=== PATIENT | female | born 1950 | race Caucasian/White ===

== ENCOUNTER 2022-10-16 13:36 | Observation (INO) ==
[2022-10-16] MEDS ORDERED: SODIUM CHLORIDE 0.9% 1,000 ML IV STA (13:58)
[2022-10-16 14:08] LABS: Basophils # 0.1 10*3/uL (0.0-0.2); Basophils % 0.8 % (0.0-0.8); Hematocrit 42.2 VOL% (35.7-47.0); Hemoglobin 13.6 GM/DL (12.0-16.0); Immature Granulocytes % 0.3 %; Immature Granulocytes Absolute 0.02 #; Lymphocytes # 2.5 10*3/uL (1.4-4.0); Mean Corpuscular HGB Conc 32.2 GM/DL (32-36); Mean Corpuscular Volume 86.7 FL (87-102); Mean Platelet Volume 9.8 FL (9.6-12.0); Monocytes # 0.7 10*3/uL (0.11-0.8); Monocytes % 10.2 % (1.7-12.7); Neutrophils % 51.7 % (38.7-73.9); Platelet Count 302 T/CUMM (130-400); Red Blood Count 4.87 MC/CUMM (3.8-5.5); Red Cell Distribution Width 14.3 % (9.3-17.3); White Blood Count 6.6 T/CUMM (4-12)
[2022-10-16 14:12] LABS: Bacteria,Urine Occasional /HPF (Few); Mucus,Urine Occasional /LPF (Occasional); RBC,Urine <1 /HPF (0-4); Squamous Epithelial Cell,Urine Occasional /HPF (0-10); Urine Appearance Clear (Clear); Urine Color Yellow (Yellow)
[2022-10-16 14:13] LABS: Urine pH 6.5 (4.5-8.0)
[2022-10-16 14:14] LABS: Bilirubin,Urine Negative (Negative); Blood, Urine Negative (Negative); Glucose,Urine (UA) Negative (Negative); Ketones,Urine Negative (Negative); Nitrite,Urine Negative (Negative); Protein,Urine Negative (Negative); Urine Urobilinogen 0.2 eU/dL (<2.0)
[2022-10-16 14:23] LABS: Alanine Aminotransferase 80 U/L (13-56); Albumin 3.9 G/DL (3.4-5.0); Alkaline Phosphatase 137 U/L (45-117); Aspartate Amino Transferase 69 U/L (0-37); Blood Urea Nitrogen 22 MG/DL (7-18); Calcium 9.7 MG/DL (8.5-10.1); Carbon Dioxide 28 MMOL/L (21-32); Chloride 106 MMOL/L (98-107); Glucose 96 MG/DL (74-106); Osmolality,Calculated 281.4 MOS/KG (273-304); Potassium 3.5 MMOL/L (3.5-5.1); Sodium 140 MMOL/L (136-145); Total Protein 7.8 G/DL (6.4-8.2)
[2022-10-16 14:56] LABS: Barbiturates Screen,Urine Negative (Negative); Benzodiazepines Screen,Urine Positive (Negative); Cannabinoid Screen,Urine Negative (Negative); Opiate Screen,Urine Negative (Negative); Phencyclidine Screen,Urine Negative (Negative)
[2022-10-16] MEDS ORDERED: LABETALOL 20 MG/4 ML SYRINGE IV STA (15:20)
[2022-10-16 16:26] LABS: INR 0.9; PT Patient Result 10.3 SECS (10.1-12.1); Partial Thromboplastin Time 25.6 SECS (23.7-32.9)
[2022-10-16] MEDS ORDERED: ONDANSETRON 4 MG/2 ML VIAL IV PRN (17:56)
[2022-10-16] MEDS ORDERED: GLUCAGON 1 MG VIAL IM PRN (17:56)
[2022-10-16] MEDS ORDERED: DEXTROSE 10% 250 ML BAG IV PRN (18:13)
[2022-10-16] MEDS: INSULIN LISPRO 100 UNIT/ML SUBCUT SCH ×2 (19:23→21:00)
[2022-10-16] MEDS: SODIUM CHLORIDE 0.9% 1,000 ML IV SCH (19:28)
[2022-10-16] MEDS: ACETAMINOPHEN 325 MG TABLET PO PRN (21:01)
[2022-10-16] MEDS: DOCUSATE SODIUM 100 MG CAPSULE PO SCH (21:02)
[2022-10-17] MEDS: INSULIN LISPRO 100 UNIT/ML SUBCUT SCH ×4 (02:51→15:55)
[2022-10-17] MEDS: SODIUM CHLORIDE 0.9% 1,000 ML IV SCH (02:52)
[2022-10-17] MEDS: ACETAMINOPHEN 325 MG TABLET PO PRN (02:54)
[2022-10-17] MEDS ORDERED: MAGNESIUM SULF RIDER 2 GM/50 ML PREMIX IV PRN (08:30)
[2022-10-17] MEDS ORDERED: POTASSIUM CHLORIDE 20 MEQ TABLET PO PRN (08:30)
[2022-10-17] MEDS ORDERED: POTASSIUM CHLORIDE RIDER 10 MEQ/100 ML PREMIX IV PRN (08:30)
[2022-10-17] MEDS ORDERED: MAGNESIUM SULF RIDER 4 GM/100 ML PREMIX IV PRN (08:30)
[2022-10-17] MEDS ORDERED: ASPIRIN EC 81 MG TABLET PO SCH (09:00)
[2022-10-17] MEDS ORDERED: PANTOPRAZOLE 40 MG TABLET PO SCH (09:00)
[2022-10-17] MEDS ORDERED: NON-FORMULARY MEDICATION (Omeprazole 20 MG capsule,delayed release(DR/EC)) PO SCH (09:00)
[2022-10-17] MEDS ORDERED: ENALAPRIL 20 MG TABLET PO SCH (09:00)
[2022-10-17] MEDS ORDERED: CLOPIDOGREL 75 MG TABLET PO SCH (11:00)
[2022-10-17] MEDS ORDERED: LORazepam 2 MG/1 ML VIAL IV ONE (11:34)
[2022-10-17] MEDS: DOCUSATE SODIUM 100 MG CAPSULE PO SCH (11:43)
[2022-10-17] MEDS ORDERED: SODIUM CHLORIDE 0.9% 1,000 ML IV SCH (12:00)
[2022-10-17 12:27] LABS: Albumin 3.6 G/DL (3.4-5.0); Bilirubin,Total 0.4 MG/DL (0.20-1.00); Calcium 8.9 MG/DL (8.5-10.1); Osmolality,Calculated 276.8 MOS/KG (273-304); Potassium 4.2 MMOL/L (3.5-5.1); Total Protein 7.7 G/DL (6.4-8.2)
[2022-10-17 15:33] VITALS: BP 177/68
[2022-10-17] MEDS ORDERED: ZALEPLON 5 MG CAPSULE PO SCH (21:00)
[2022-10-17] MEDS ORDERED: ATORVASTATIN 40 MG TABLET PO SCH (21:00)
[2022-10-18] MEDS ORDERED: LEVOTHYROXINE 50 MCG TABLET PO SCH (06:30)
== END 2022-10-17 18:18 | disposition hospice, home (50) ==
LOC: N.EDINP 13:36 → N.ED 13:36 → N.EDINP 17:34 → N.2W 18:05
PROVIDERS: ADMIT Family Medicine; ATTEND Family Medicine

== ENCOUNTER 2022-12-10 11:50 | Inpatient (IN) ==
[2022-12-10] MEDS ORDERED: SODIUM CHLORIDE 0.9% 500 ML IV STA (12:54)
[2022-12-10 13:09] LABS: Basophils % 0.1 % (0.0-0.8); Hematocrit 29.8 VOL% (35.7-47.0); Hemoglobin 9.7 GM/DL (12.0-16.0); Immature Granulocytes % 0.5 %; Immature Granulocytes Absolute 0.06 #; Lymphocytes % 8.2 % (21.3-54.2); Mean Corpuscular HGB Conc 32.6 GM/DL (32-36); Mean Corpuscular Volume 84.9 FL (87-102); Mean Platelet Volume 9.5 FL (9.6-12.0); Monocytes # 0.9 10*3/uL (0.11-0.8); Neutrophils % 83.2 % (38.7-73.9); Platelet Count 370 T/CUMM (130-400); Red Blood Count 3.51 MC/CUMM (3.8-5.5); Red Cell Distribution Width 16.3 % (9.3-17.3); White Blood Count 11.72 T/CUMM (4-12)
[2022-12-10 13:12] LABS: Albumin 2.8 G/DL (3.4-5.0); Bilirubin,Total 0.4 MG/DL (0.20-1.00); Calcium 8.7 MG/DL (8.5-10.1); Osmolality,Calculated 294.5 MOS/KG (273-304); Potassium 3.8 MMOL/L (3.5-5.1); Total Protein 6.1 G/DL (6.4-8.2)
[2022-12-10] MEDS: DEXTROSE 5% NACL 0.45% 1,000 ML IV SCH (16:50)
[2022-12-10] MEDS: MORPHINE 2 MG/1 ML SYRINGE IV PRN (18:45)
[2022-12-11] MEDS: DEXTROSE 5% NACL 0.45% 1,000 ML IV SCH ×3 (01:45→17:53)
[2022-12-11] MEDS: MORPHINE 2 MG/1 ML SYRINGE IV PRN ×2 (04:27→09:39)
[2022-12-11 06:59] LABS: Mucus,Urine Occasional /LPF (Occasional); RBC,Urine 17 /HPF (0-4); Squamous Epithelial Cell,Urine Occasional /HPF (0-10); Urine Appearance Clear (Clear); Urine Color Yellow (Yellow)
[2022-12-11 07:00] LABS: Bilirubin,Urine Small mg/dL (Negative); Blood, Urine Large mg/dL (Negative); Glucose,Urine (UA) 500 mg/dL (Negative); Ketones,Urine 15 mg/dL (Negative); Nitrite,Urine Negative (Negative); Protein,Urine 100 mg/dL (Negative); Urine Specific Gravity > 1.030 (1.001-1.035); Urine Urobilinogen 0.2 eU/dL (<2.0)
[2022-12-11] MEDS ORDERED: MAGNESIUM SULF RIDER 2 GM/50 ML PREMIX IV PRN (08:27)
[2022-12-11] MEDS ORDERED: MAGNESIUM SULF RIDER 4 GM/100 ML PREMIX IV PRN (08:27)
[2022-12-11] MEDS ORDERED: DEXTROSE 10% 250 ML BAG IV PRN (08:27)
[2022-12-11] MEDS ORDERED: GLUCAGON 1 MG VIAL IM PRN (08:27)
[2022-12-11 09:24] LABS: Alanine Aminotransferase 57 U/L (13-56); Albumin 2.4 G/DL (3.4-5.0); Alkaline Phosphatase 125 U/L (45-117); Aspartate Amino Transferase 78 U/L (0-37); Bilirubin,Total < 0.39 MG/DL (0.20-1.00); Blood Urea Nitrogen 27 MG/DL (7-18); Carbon Dioxide 21 MMOL/L (21-32); Chloride 105 MMOL/L (98-107); Glucose 301 MG/DL (74-106); Osmolality,Calculated 288.8 MOS/KG (273-304); Potassium 3.5 MMOL/L (3.5-5.1); Sodium 137 MMOL/L (136-145); Total Protein 5.5 G/DL (6.4-8.2)
[2022-12-11] MEDS: ENOXAPARIN 40 MG/0.4 ML SYRINGE SUBCUT SCH (09:35)
[2022-12-11] MEDS: INSULIN REGULAR 100 UNIT/ML SUBCUT SCH ×2 (12:00→17:54)
[2022-12-11] MEDS: INSULIN LISPRO 100 UNIT/ML SUBCUT SCH ×2 (12:00→17:54)
[2022-12-11] MEDS: FLUCONAZOLE INJ 200 MG/100 ML PREMIX IV SCH (14:30)
[2022-12-11] MEDS ORDERED: hydrALAZINE 20 MG/1 ML VIAL IV PRN (15:19)
[2022-12-12] MEDS: DEXTROSE 5% NACL 0.45% 1,000 ML IV SCH ×3 (01:45→13:56)
[2022-12-12] MEDS: INSULIN LISPRO 100 UNIT/ML SUBCUT SCH ×4 (03:02→17:04)
[2022-12-12] MEDS: INSULIN REGULAR 100 UNIT/ML SUBCUT SCH ×4 (03:02→17:05)
[2022-12-12 06:05] LABS: Basophils % 0.3 % (0.0-0.8); Hemoglobin 9.7 GM/DL (12.0-16.0); Immature Granulocytes % 0.6 %; Immature Granulocytes Absolute 0.04 #; Lymphocytes # 1.1 10*3/uL (1.4-4.0); Lymphocytes % 16.2 % (21.3-54.2); Mean Corpuscular HGB Conc 33.4 GM/DL (32-36); Mean Corpuscular Volume 82.2 FL (87-102); Mean Platelet Volume 9.8 FL (9.6-12.0); Monocytes # 0.6 10*3/uL (0.11-0.8); Monocytes % 8.7 % (1.7-12.7); Neutrophils % 74.2 % (38.7-73.9); Platelet Count 308 T/CUMM (130-400); Red Blood Count 3.53 MC/CUMM (3.8-5.5); Red Cell Distribution Width 15.8 % (9.3-17.3); White Blood Count 6.67 T/CUMM (4-12)
[2022-12-12 06:26] LABS: Albumin 2.3 G/DL (3.4-5.0); Bilirubin,Total 0.4 MG/DL (0.20-1.00); Calcium 8.2 MG/DL (8.5-10.1); Osmolality,Calculated 281.4 MOS/KG (273-304)
[2022-12-12] MEDS: ENOXAPARIN 40 MG/0.4 ML SYRINGE SUBCUT SCH (10:11)
[2022-12-12] MEDS: FLUCONAZOLE INJ 200 MG/100 ML PREMIX IV SCH (13:56)
[2022-12-12] MEDS: SODIUM CHLORIDE 0.9% 1,000 ML IV SCH (21:29)
[2022-12-12] MEDS: POTASSIUM CHLORIDE RIDER 10 MEQ/100 ML PREMIX IV PRN (21:30)
[2022-12-13] MEDS: INSULIN LISPRO 100 UNIT/ML SUBCUT SCH ×3 (00:11→11:40)
[2022-12-13] MEDS: POTASSIUM CHLORIDE RIDER 10 MEQ/100 ML PREMIX IV PRN ×5 (00:11→23:40)
[2022-12-13] MEDS ORDERED: SODIUM CHLORIDE 0.9% 1,000 ML IV SCH (02:45)
[2022-12-13] MEDS ORDERED: SODIUM CHLORIDE 0.9% 500 ML IV ONE (03:00)
[2022-12-13] MEDS: SODIUM CHLORIDE 0.9% 1,000 ML IV SCH (05:04)
[2022-12-13 06:03] LABS: Phosphorous 4.5 MG/DL (2.5-4.9)
[2022-12-13 08:12] LABS: Arterial Base Excess iSTAT -12 MMOL/L (-2.5-2.5); Arterial Bicarbonate iSTAT 11.6 MMOL/L (20-26); Arterial O2 Saturation iSTAT 99 % (95-100); Arterial PCO2 iSTAT 21 MM HG (35-48); Arterial PO2 iSTAT 136 MM HG (80-95); Arterial Total CO2 iSTAT 12 MMO/L (23-27); Arterial pH iSTAT 7.341 (7.35-7.45)
[2022-12-13] MEDS: ONDANSETRON 4 MG/2 ML VIAL IV PRN (08:13)
[2022-12-13] MEDS: ENOXAPARIN 40 MG/0.4 ML SYRINGE SUBCUT SCH (08:14)
[2022-12-13 08:51] LABS: Bilirubin,Total 0.4 MG/DL (0.20-1.00); Calcium 9.3 MG/DL (8.5-10.1); Osmolality,Calculated 281.7 MOS/KG (273-304); Potassium 4.1 MMOL/L (3.5-5.1); Total Protein 7.8 G/DL (6.4-8.2)
[2022-12-13] MEDS ORDERED: DEXTROSE 5% NACL 0.45% 1,000 ML IV SCH (11:00)
[2022-12-13] MEDS: PIPERACILLIN/TAZOBACTAM 3,375 MG in SODIUM CHLORIDE 0.9% 100 ML IV SCH ×2 (11:23→20:28)
[2022-12-13 11:30] LABS: Calcium 8.5 MG/DL (8.5-10.1); Osmolality,Calculated 281.4 MOS/KG (273-304); Potassium 4.4 MMOL/L (3.5-5.1)
[2022-12-13 11:45] LABS: Basophils % 0.1 % (0.0-0.8); Hematocrit 31.1 VOL% (35.7-47.0); Hemoglobin 10.2 GM/DL (12.0-16.0); Immature Granulocytes % 1.4 %; Immature Granulocytes Absolute 0.25 #; Lymphocytes # 1.7 10*3/uL (1.4-4.0); Lymphocytes % 9.9 % (21.3-54.2); Mean Corpuscular HGB Conc 32.8 GM/DL (32-36); Mean Corpuscular Volume 84.5 FL (87-102); Mean Platelet Volume 9.2 FL (9.6-12.0); Monocytes # 1.3 10*3/uL (0.11-0.8); Monocytes % 7.2 % (1.7-12.7); Neutrophils % 81.4 % (38.7-73.9); Platelet Count 395 T/CUMM (130-400); Red Blood Count 3.68 MC/CUMM (3.8-5.5); Red Cell Distribution Width 16.5 % (9.3-17.3); White Blood Count 17.26 T/CUMM (4-12)
[2022-12-13 11:46] LABS: Albumin 2.6 G/DL (3.4-5.0); Bilirubin,Total 0.4 MG/DL (0.20-1.00); Calcium 8.6 MG/DL (8.5-10.1); Osmolality,Calculated 283.3 MOS/KG (273-304); Potassium 4.4 MMOL/L (3.5-5.1); Total Protein 5.9 G/DL (6.4-8.2)
[2022-12-13 11:50] LABS: Albumin 2.6 G/DL (3.4-5.0); Bilirubin,Direct 0.17 MG/DL (0.0-0.20); Bilirubin,Indirect 0.2 MG/DL (0.0-1.0); Bilirubin,Total 0.4 MG/DL (0.20-1.00)
[2022-12-13] MEDS ORDERED: SODIUM BICARB INJ 50 MEQ in DEXTROSE 5% NACL 0.45% 1,000 ML IV SCH (12:30)
[2022-12-13 13:26] LABS: Free T4 (Free Thyroxine) 0.84 NG/DL (0.76-1.46); Thyroid Stimulating Hormone 7.64 uIU/ml (0.358-3.74)
[2022-12-13] MEDS: FLUCONAZOLE INJ 200 MG/100 ML PREMIX IV SCH (14:35)
[2022-12-13 14:41] LABS: Basophils % 0.2 % (0.0-0.8); Hematocrit 33.8 VOL% (35.7-47.0); Immature Granulocytes % 1.5 %; Lymphocytes # 1.3 10*3/uL (1.4-4.0); Lymphocytes % 9.7 % (21.3-54.2); Mean Corpuscular HGB Conc 32.5 GM/DL (32-36); Mean Corpuscular Volume 84.5 FL (87-102); Mean Platelet Volume 9.3 FL (9.6-12.0); Monocytes # 0.8 10*3/uL (0.11-0.8); Monocytes % 5.5 % (1.7-12.7); Neutrophils % 83.1 % (38.7-73.9); Platelet Count 412 T/CUMM (130-400); Red Cell Distribution Width 16.6 % (9.3-17.3); White Blood Count 13.71 T/CUMM (4-12)
[2022-12-13 14:52] LABS: Osmolality,Calculated 286.5 MOS/KG (273-304); Potassium 4.1 MMOL/L (3.5-5.1)
[2022-12-13] MEDS ORDERED: SODIUM CHLORIDE 0.9% 1,000 ML IV ONE (14:54)
[2022-12-13] MEDS ORDERED: SODIUM BICARB INJ 100 MEQ in STERILE WATER INJ 400 ML IV PRN (14:54)
[2022-12-13] MEDS ORDERED: SODIUM PHOSPHATE IV PRN (14:54)
[2022-12-13] MEDS ORDERED: SODIUM CHLORIDE 0.9% IV PRN (14:54)
[2022-12-13] MEDS ORDERED: INSULIN REGULAR DRIP 100 ML IV SCH (15:00)
[2022-12-13 15:03] LABS: Mucus,Urine Occasional /LPF (Occasional); RBC,Urine 21 /HPF (0-4); Squamous Epithelial Cell,Urine Occasional /HPF (0-10)
[2022-12-13 15:04] LABS: Urine Appearance Clear (Clear); Urine Color Yellow (Yellow); Urine Specific Gravity 1.025 (1.001-1.035); Urine pH 5.5 (4.5-8.0)
[2022-12-13 15:05] LABS: Bilirubin,Urine Moderate mg/dL (Negative); Blood, Urine Moderate mg/dL (Negative); Glucose,Urine (UA) 500 mg/dL (Negative); Ketones,Urine >=160 mg/dL (Negative); Nitrite,Urine Negative (Negative); Protein,Urine 100 mg/dL (Negative); Urine Urobilinogen 0.2 eU/dL (<2.0)
[2022-12-13 15:16] LABS: Phosphorous 1.7 MG/DL (2.5-4.9)
[2022-12-13] MEDS ORDERED: LORazepam 2 MG/1 ML VIAL IV ONE (16:01)
[2022-12-13] MEDS ORDERED: LORazepam 2 MG/1 ML VIAL ONE (16:03)
[2022-12-13] MEDS: DEXTROSE 5% NACL 0.45% 1,000 ML IV SCH (16:06)
[2022-12-13 17:38] LABS: Calcium 7.9 MG/DL (8.5-10.1); Osmolality,Calculated 292.4 MOS/KG (273-304); Potassium 3.7 MMOL/L (3.5-5.1)
[2022-12-13 17:44] LABS: Arterial Base Excess iSTAT -26 MMOL/L (-2.5-2.5); Arterial Bicarbonate iSTAT 2.9 MMOL/L (20-26); Arterial O2 Saturation iSTAT 36 % (95-100); Arterial PCO2 iSTAT 12 MM HG (35-48); Arterial PO2 iSTAT 32 MM HG (80-95); Arterial Total CO2 iSTAT < 5 MMO/L (23-27); Arterial pH iSTAT 6.984 (7.35-7.45)
[2022-12-13 17:55] LABS: Arterial Base Excess iSTAT -15 MMOL/L (-2.5-2.5); Arterial Bicarbonate iSTAT 9.6 MMOL/L (20-26); Arterial O2 Saturation iSTAT 99 % (95-100); Arterial PCO2 iSTAT 21 MM HG (35-48); Arterial PO2 iSTAT 138 MM HG (80-95); Arterial Total CO2 iSTAT 10 MMO/L (23-27); Arterial pH iSTAT 7.278 (7.35-7.45)
[2022-12-13] MEDS ORDERED: SODIUM BICARBONATE 50 MEQ/50 ML VIAL IV ONE ×2 (18:33→19:30)
[2022-12-13 23:30] LABS: Calcium 7.8 MG/DL (8.5-10.1); Osmolality,Calculated 288.8 MOS/KG (273-304); Potassium 2.7 MMOL/L (3.5-5.1)
[2022-12-14] MEDS: DEXTROSE 5% NACL 0.45% 1,000 ML IV SCH ×5 (00:01→16:33)
[2022-12-14] MEDS: POTASSIUM CHLORIDE RIDER 10 MEQ/100 ML PREMIX IV PRN ×9 (00:40→17:05)
[2022-12-14 03:28] LABS: Basophils % 0.1 % (0.0-0.8); Eosinophils % 0.2 % (0.00-10.9); Hematocrit 23.2 VOL% (35.7-47.0); Hemoglobin 7.6 GM/DL (12.0-16.0); Immature Granulocytes % 0.8 %; Immature Granulocytes Absolute 0.07 #; Lymphocytes # 1.7 10*3/uL (1.4-4.0); Lymphocytes % 18.6 % (21.3-54.2); Mean Corpuscular HGB Conc 32.8 GM/DL (32-36); Mean Corpuscular Volume 83.5 FL (87-102); Mean Platelet Volume 9.3 FL (9.6-12.0); Monocytes # 0.7 10*3/uL (0.11-0.8); Monocytes % 7.2 % (1.7-12.7); Neutrophils % 73.1 % (38.7-73.9); Platelet Count 313 T/CUMM (130-400); Red Blood Count 2.78 MC/CUMM (3.8-5.5); Red Cell Distribution Width 16.7 % (9.3-17.3); White Blood Count 8.99 T/CUMM (4-12)
[2022-12-14 03:40] LABS: Alanine Aminotransferase 37 U/L (13-56); Albumin 2.1 G/DL (3.4-5.0); Alkaline Phosphatase 100 U/L (45-117); Aspartate Amino Transferase 26 U/L (0-37); Bilirubin,Total < 0.39 MG/DL (0.20-1.00); Blood Urea Nitrogen 19 MG/DL (7-18); Calcium 7.7 MG/DL (8.5-10.1); Carbon Dioxide 18 MMOL/L (21-32); Chloride 113 MMOL/L (98-107); Glucose 115 MG/DL (74-106); Osmolality,Calculated 283.3 MOS/KG (273-304); Potassium 3.2 MMOL/L (3.5-5.1); Sodium 141 MMOL/L (136-145); Total Protein 5.2 G/DL (6.4-8.2)
[2022-12-14] MEDS: PIPERACILLIN/TAZOBACTAM 3,375 MG in SODIUM CHLORIDE 0.9% 100 ML IV SCH ×3 (04:38→20:13)
[2022-12-14 04:50] LABS: Calcium 7.8 MG/DL (8.5-10.1); Osmolality,Calculated 283.3 MOS/KG (273-304); Potassium 3.2 MMOL/L (3.5-5.1)
[2022-12-14] MEDS: LEVOTHYROXINE 100 MCG VIAL IV SCH (06:38)
[2022-12-14 06:55] LABS: Calcium 7.5 MG/DL (8.5-10.1); Osmolality,Calculated 279.4 MOS/KG (273-304); Potassium 3.7 MMOL/L (3.5-5.1)
[2022-12-14] MEDS ORDERED: SODIUM CHLORIDE 0.45% 1,000 ML IV SCH (08:00)
[2022-12-14] MEDS: ENOXAPARIN 40 MG/0.4 ML SYRINGE SUBCUT SCH (08:10)
[2022-12-14] MEDS: INSULIN GLARGINE 100 UNIT/ML SUBCUT SCH (09:19)
[2022-12-14] MEDS: PANTOPRAZOLE 40 MG VIAL IV SCH (09:21)
[2022-12-14] MEDS: SERTRALINE 100 MG TABLET PO SCH (09:24)
[2022-12-14] MEDS: NYSTATIN POWDER 15 GM BOTTLE TOP SCH ×3 (09:24→20:16)
[2022-12-14] MEDS: amLODIPine 10 MG TABLET PO SCH (09:24)
[2022-12-14 11:10] LABS: Arterial Base Excess iSTAT -6 MMOL/L (-2.5-2.5); Arterial Bicarbonate iSTAT 17.2 MMOL/L (20-26); Arterial O2 Saturation iSTAT 99 % (95-100); Arterial PCO2 iSTAT 24 MM HG (35-48); Arterial PO2 iSTAT 135 MM HG (80-95); Arterial Total CO2 iSTAT 18 MMO/L (23-27)
[2022-12-14] MEDS: INSULIN LISPRO 100 UNIT/ML SUBCUT SCH ×2 (11:45→18:02)
[2022-12-14] MEDS: FLUCONAZOLE INJ 200 MG/100 ML PREMIX IV SCH (12:01)
[2022-12-14 14:03] LABS: Hematocrit 20.5 VOL% (35.7-47.0); Hemoglobin 6.9 GM/DL (12.0-16.0)
[2022-12-14 14:14] LABS: Calcium 7.2 MG/DL (8.5-10.1); Osmolality,Calculated 280.8 MOS/KG (273-304); Potassium 3.5 MMOL/L (3.5-5.1)
[2022-12-14] MEDS ORDERED: SODIUM CHLORIDE 0.9% 1,000 ML IV PRN (14:43)
[2022-12-14] MEDS: SODIUM CHLORIDE 0.9% 1,000 ML IV SCH (18:25)
[2022-12-14 19:37] LABS: Hematocrit 25.6 VOL% (35.7-47.0); Hemoglobin 8.5 GM/DL (12.0-16.0)
[2022-12-15] MEDS: INSULIN LISPRO 100 UNIT/ML SUBCUT SCH ×4 (00:15→18:24)
[2022-12-15] MEDS: SODIUM CHLORIDE 0.9% 1,000 ML IV SCH ×4 (02:25→19:56)
[2022-12-15 03:27] LABS: Basophils % 0.3 % (0.0-0.8); Hemoglobin 8.5 GM/DL (12.0-16.0); Immature Granulocytes % 0.9 %; Immature Granulocytes Absolute 0.08 #; Lymphocytes # 1.7 10*3/uL (1.4-4.0); Lymphocytes % 18.8 % (21.3-54.2); Mean Corpuscular Volume 83.1 FL (87-102); Monocytes # 0.8 10*3/uL (0.11-0.8); Monocytes % 8.7 % (1.7-12.7); Neutrophils % 71.3 % (38.7-73.9); Platelet Count 230 T/CUMM (130-400); Red Blood Count 3.01 MC/CUMM (3.8-5.5); Red Cell Distribution Width 16.2 % (9.3-17.3); White Blood Count 8.98 T/CUMM (4-12)
[2022-12-15 03:47] LABS: Alanine Aminotransferase 31 U/L (13-56); Alkaline Phosphatase 104 U/L (45-117); Aspartate Amino Transferase 30 U/L (0-37); Bilirubin,Total < 0.39 MG/DL (0.20-1.00); Blood Urea Nitrogen 11 MG/DL (7-18); Calcium 7.6 MG/DL (8.5-10.1); Carbon Dioxide 20 MMOL/L (21-32); Chloride 108 MMOL/L (98-107); Glucose 157 MG/DL (74-106); Potassium 3.5 MMOL/L (3.5-5.1); Sodium 136 MMOL/L (136-145)
[2022-12-15] MEDS: PIPERACILLIN/TAZOBACTAM 3,375 MG in SODIUM CHLORIDE 0.9% 100 ML IV SCH ×3 (04:12→21:40)
[2022-12-15] MEDS: LEVOTHYROXINE 100 MCG VIAL IV SCH (06:37)
[2022-12-15] MEDS: NYSTATIN POWDER 15 GM BOTTLE TOP SCH ×3 (09:41→21:41)
[2022-12-15] MEDS: PANTOPRAZOLE 40 MG VIAL IV SCH (09:41)
[2022-12-15] MEDS: amLODIPine 10 MG TABLET PO SCH (09:41)
[2022-12-15] MEDS: INSULIN GLARGINE 100 UNIT/ML SUBCUT SCH (09:41)
[2022-12-15] MEDS: SERTRALINE 100 MG TABLET PO SCH (09:42)
[2022-12-15 10:42] LABS: Hematocrit 25.5 VOL% (35.7-47.0); Hemoglobin 8.5 GM/DL (12.0-16.0)
[2022-12-15] MEDS: FLUCONAZOLE INJ 200 MG/100 ML PREMIX IV SCH (13:26)
[2022-12-15 17:51] LABS: Hematocrit 23.9 VOL% (35.7-47.0); Hemoglobin 8.3 GM/DL (12.0-16.0)
[2022-12-16] MEDS: INSULIN LISPRO 100 UNIT/ML SUBCUT SCH ×4 (00:38→18:04)
[2022-12-16] MEDS: PIPERACILLIN/TAZOBACTAM 3,375 MG in SODIUM CHLORIDE 0.9% 100 ML IV SCH ×2 (04:03→17:35)
[2022-12-16 04:45] LABS: Basophils % 0.3 % (0.0-0.8); Eosinophils % 0.1 % (0.00-10.9); Hematocrit 26.5 VOL% (35.7-47.0); Hemoglobin 8.7 GM/DL (12.0-16.0); Immature Granulocytes % 2.1 %; Immature Granulocytes Absolute 0.15 #; Lymphocytes # 1.2 10*3/uL (1.4-4.0); Lymphocytes % 17.1 % (21.3-54.2); Mean Corpuscular HGB Conc 32.8 GM/DL (32-36); Mean Corpuscular Volume 83.6 FL (87-102); Mean Platelet Volume 9.6 FL (9.6-12.0); Monocytes # 0.6 10*3/uL (0.11-0.8); Monocytes % 8.8 % (1.7-12.7); Neutrophils % 71.6 % (38.7-73.9); Platelet Count 248 T/CUMM (130-400); Red Blood Count 3.17 MC/CUMM (3.8-5.5); Red Cell Distribution Width 16.2 % (9.3-17.3); White Blood Count 7.19 T/CUMM (4-12)
[2022-12-16 05:02] LABS: Alanine Aminotransferase 34 U/L (13-56); Albumin 1.9 G/DL (3.4-5.0); Alkaline Phosphatase 133 U/L (45-117); Aspartate Amino Transferase 35 U/L (0-37); Bilirubin,Total < 0.39 MG/DL (0.20-1.00); Blood Urea Nitrogen 12 MG/DL (7-18); Calcium 7.8 MG/DL (8.5-10.1); Carbon Dioxide 23 MMOL/L (21-32); Chloride 109 MMOL/L (98-107); Glucose 222 MG/DL (74-106); Osmolality,Calculated 281.7 MOS/KG (273-304); Potassium 3.6 MMOL/L (3.5-5.1); Sodium 138 MMOL/L (136-145); Total Protein 5.2 G/DL (6.4-8.2)
[2022-12-16] MEDS: LEVOTHYROXINE 100 MCG VIAL IV SCH (06:03)
[2022-12-16] MEDS: NYSTATIN POWDER 15 GM BOTTLE TOP SCH ×3 (09:35→21:46)
[2022-12-16] MEDS: PANTOPRAZOLE 40 MG VIAL IV SCH (09:36)
[2022-12-16] MEDS: amLODIPine 10 MG TABLET PO SCH (09:36)
[2022-12-16] MEDS: SODIUM CHLORIDE 0.9% 1,000 ML IV SCH ×2 (09:36→18:12)
[2022-12-16] MEDS: SERTRALINE 100 MG TABLET PO SCH (09:36)
[2022-12-16] MEDS: POTASSIUM PHOS/SOD PHOS POWDER 250 MG PACK NG SCH ×3 (10:38→21:46)
[2022-12-16] MEDS: INSULIN GLARGINE 100 UNIT/ML SUBCUT SCH (10:38)
[2022-12-16] MEDS ORDERED: POTASSIUM PHOSPHATE 15 MMOL in SODIUM CHLORIDE 0.9% 250 ML IV ONE (11:00)
[2022-12-16] MEDS: FLUCONAZOLE INJ 200 MG/100 ML PREMIX IV SCH (12:01)
[2022-12-17] MEDS: PIPERACILLIN/TAZOBACTAM 3,375 MG in SODIUM CHLORIDE 0.9% 100 ML IV SCH ×3 (00:47→16:50)
[2022-12-17] MEDS: INSULIN LISPRO 100 UNIT/ML SUBCUT SCH ×4 (00:48→18:10)
[2022-12-17] MEDS: SODIUM CHLORIDE 0.9% 1,000 ML IV SCH ×3 (03:18→13:35)
[2022-12-17 06:06] LABS: INR 0.9; PT Patient Result 10.1 SECS (10.1-12.1)
[2022-12-17] MEDS: LEVOTHYROXINE 100 MCG VIAL IV SCH (06:30)
[2022-12-17] MEDS ORDERED: LACTATED RINGERS 1,000 ML IV SCH (08:00)
[2022-12-17] MEDS: PANTOPRAZOLE 40 MG VIAL IV SCH (08:44)
[2022-12-17] MEDS: INSULIN GLARGINE 100 UNIT/ML SUBCUT SCH (09:32)
[2022-12-17] MEDS: NYSTATIN POWDER 15 GM BOTTLE TOP SCH ×3 (09:33→20:37)
[2022-12-17] MEDS: SERTRALINE 100 MG TABLET PO SCH (09:33)
[2022-12-17] MEDS: POTASSIUM PHOS/SOD PHOS POWDER 250 MG PACK NG SCH ×3 (09:33→20:37)
[2022-12-17] MEDS: amLODIPine 10 MG TABLET PO SCH (09:33)
[2022-12-17] MEDS ORDERED: ETOMIDATE 20 MG/10 ML VIAL IV ONE (12:05)
[2022-12-17] MEDS ORDERED: LIDOCAINE 2% 5 ML VIAL ONE (12:05)
[2022-12-17] MEDS ORDERED: propofoL 200 MG/20 ML VIAL IV ONE (12:05)
[2022-12-17] MEDS: FLUCONAZOLE INJ 200 MG/100 ML PREMIX IV SCH (13:30)
[2022-12-17] MEDS: MENTHOL/ZINC OXIDE OINT 71 GM JAR TOP SCH (20:37)
[2022-12-18] MEDS: INSULIN LISPRO 100 UNIT/ML SUBCUT SCH ×3 (00:27→13:10)
[2022-12-18] MEDS: PIPERACILLIN/TAZOBACTAM 3,375 MG in SODIUM CHLORIDE 0.9% 100 ML IV SCH ×2 (01:24→09:08)
[2022-12-18] MEDS: LEVOTHYROXINE 100 MCG VIAL IV SCH (06:27)
[2022-12-18] MEDS: SODIUM CHLORIDE 0.9% 1,000 ML IV SCH (07:56)
[2022-12-18 09:05] LABS: Basophils # 0.1 10*3/uL (0.0-0.2); Basophils % 0.6 % (0.0-0.8); Eosinophils % 0.1 % (0.00-10.9); Hematocrit 29.7 VOL% (35.7-47.0); Hemoglobin 9.9 GM/DL (12.0-16.0); Immature Granulocytes % 2.3 %; Immature Granulocytes Absolute 0.24 #; Lymphocytes # 1.5 10*3/uL (1.4-4.0); Lymphocytes % 13.9 % (21.3-54.2); Mean Corpuscular HGB Conc 33.3 GM/DL (32-36); Mean Corpuscular Volume 84.4 FL (87-102); Mean Platelet Volume 9.4 FL (9.6-12.0); Monocytes % 9.1 % (1.7-12.7); Platelet Count 340 T/CUMM (130-400); Red Blood Count 3.52 MC/CUMM (3.8-5.5); Red Cell Distribution Width 17.1 % (9.3-17.3); White Blood Count 10.63 T/CUMM (4-12)
[2022-12-18] MEDS: MENTHOL/ZINC OXIDE OINT 71 GM JAR TOP SCH (09:07)
[2022-12-18] MEDS: SERTRALINE 100 MG TABLET PO SCH (09:08)
[2022-12-18] MEDS: PANTOPRAZOLE 40 MG VIAL IV SCH (09:08)
[2022-12-18] MEDS: NYSTATIN POWDER 15 GM BOTTLE TOP SCH (09:08)
[2022-12-18] MEDS: amLODIPine 10 MG TABLET PO SCH (09:08)
[2022-12-18] MEDS: INSULIN GLARGINE 100 UNIT/ML SUBCUT SCH (09:13)
[2022-12-18 09:33] LABS: Calcium 8.3 MG/DL (8.5-10.1); Osmolality,Calculated 278.1 MOS/KG (273-304); Potassium 3.4 MMOL/L (3.5-5.1)
[2022-12-18] MEDS: ONDANSETRON 4 MG/2 ML VIAL IV PRN (09:34)
[2022-12-18 11:48] VITALS: BP 163/78
[2022-12-19] MEDS ORDERED: OMEPRAZOLE ODT 20 MG TABLET PEG SCH (09:00)
== END 2022-12-18 14:49 | DRG 56 ==
LOC: N.EDINP 11:50 → N.ED 11:50 → N.2W 17:15 → SUATTDRO 12-12 13:07 → N.CC 12-13 13:18 → N.2E 12-15 13:45 → N.CC 12-15 13:46 → N.2E 12-15 15:25
PROVIDERS: ADMIT Family Medicine; ATTEND Family Medicine
PROC: EGDWPEG (ICD-10-PCS; 2022-12-17 12:35)